=== PATIENT | female | born 1980 | race Caucasian/White ===

== ENCOUNTER 2019-02-07 09:07 | Emergency (ER) | payer MEDICAID, OTHER ==
[2019-02-07] MEDS ORDERED: SODIUM CHLORIDE 0.9% 1000ML 1,000 ML IV ONE (09:21)
[2019-02-07] MEDS ORDERED: ACETAMINOPHEN 325 MG TAB ONE (09:22)
[2019-02-07] MEDS ORDERED: CEFTRIAXONE SODIUM 2 GM VIAL ONE (09:49)
[2019-02-07 09:52] LABS: HCG,QUAL RESULT NEGATIVE (NEGATIVE)
[2019-02-07 09:54] LABS: BILIRUBIN,URINE Negative (NEGATIVE); COLOR,URINE Yellow (YELLOW); GLUCOSE, URINE (UA) Negative (NEGATIVE); KETONES,URINE Negative (NEGATIVE); LEUKOCYTE ESTERASE ,URINE Moderate (NEGATIVE); NITRATE,URINE Positive (NEGATIVE); OCCULT BLOOD,URINE Trace (NEGATIVE); PH,URINE 6.5 (5.0-8.0); PROTEIN,URINE Trace mg/dL (NEGATIVE)
[2019-02-07 09:55] LABS: APPEARANCE,URINE SLIGHTLY CLOUDY (CLEAR)
[2019-02-07 10:00] LABS: BACTERIA,URINE Moderate /HPF (None Seen)
[2019-02-07 10:14] LABS: CREATININE 0.8 mg/dL (0.5-1.5); POTASSIUM 3.7 mmol/L (3.5-5.1)
[2019-02-07 10:24] LABS: ALBUMIN 2.7 g/dL (3.5-5.0); BILIRUBIN,DIRECT 0.2 mg/dL (0.0-0.3); BILIRUBIN,TOTAL 0.7 mg/dL (0.2-1.0)
[2019-02-07 10:36] LABS: BASOPHILS % (AUTO) 1.4 % (0.0-5.0); EOSINOPHILS % (AUTO) 0.1 % (0.0-8.0); HEMATOCRIT 33.3 % (36-48); MEAN CORPUSCULAR HEMOGLOBIN 20.9 pg (27.0-33.0); MEAN CORPUSCULAR HGB CONC 30.9 g/dL (32.0-36.0); MEAN CORPUSCULAR VOLUME 67.6 fL (79-99); MONOCYTES % (AUTO) 4.3 % (3.0-13.0); NEUTROPHILS % (AUTO) 81.2 % (40.0-77.0); PLATELET COUNT (AUTO) 315 K/uL (130-400); RED BLOOD CELL COUNT(AUTO) 4.93 MIL/uL (4.00-5.50); RED CELL DISTRIBUTION WIDTH 17.2 % (11.0-15.5); WHITE BLOOD COUNT (AUTO) 12.8 K/uL (4.8-10.8)
[2019-02-07 10:54] LABS: B-TYPE NATRIURETIC PEPTIDE 825 pg/mL (0-100)
== END 2019-02-07 12:31 | disposition left against medical advice (07) ==
LOC: EDH 09:07
DX: J18.9 Pneumonia, unspecified organism (principal)
CPT/HCPCS: 36415; 71045; 71275; 80048; 80076; 81001; 81025; 82550; 83605; 83880; 84484; 85025; 87040 ×2; 93005; 96374; 99285; J0696; J7030

== ENCOUNTER 2019-02-26 20:22 | Inpatient (IN) | payer SELFPAY ==
[~2019-02-26] VITALS: Ht 162.6 cm; Wt 67.0 kg
[2019-02-26] MEDS ORDERED: SODIUM CHLORIDE 0.9% 1000ML 1,000 ML IV ONE (20:39)
[2019-02-26 20:45] LABS: APPEARANCE,URINE SL CLOUDY (CLEAR); BILIRUBIN,URINE NEGATIVE (NEGATIVE); COLOR,URINE YELLOW (YELLOW); GLUCOSE, URINE (UA) NEGATIVE (NEGATIVE); KETONES,URINE NEGATIVE (NEGATIVE); LEUKOCYTE ESTERASE ,URINE TRACE (NEGATIVE); NITRATE,URINE POSITIVE (NEGATIVE); OCCULT BLOOD,URINE MODERATE (NEGATIVE); PROTEIN,URINE 30 mg/dL (NEGATIVE); UROBILINOGEN,URINE 0.2 mg/dL (0.2-1.0)
[2019-02-26 20:52] LABS: BACTERIA,URINE Moderate /HPF (None Seen); HYALINE CASTS, URINE 0-1 /LPF (0-1 /LPF); MUCUS,URINE Rare LPF (None Seen); SQUAMOUS EPITHELIAL CELL,UR Moderate /HPF (0-2)
[2019-02-26 20:53] LABS: AMPHET/METH SCREEN,URINE NEGATIVE (NEGATIVE); BARBITURATE SCREEN, URINE NEGATIVE (NEGATIVE); BENZODIAZEPINES SCREEN,URINE NEGATIVE (NEGATIVE); CANNABINOID SCREEN,URINE NEGATIVE (NEGATIVE); COCAINE SCREEN,URINE NEGATIVE (NEGATIVE); OPIATE SCREEN,URINE NEGATIVE (NEGATIVE); PHENCYCLIDINE SCREEN,URINE NEGATIVE (NEGATIVE)
[2019-02-26 20:56] LABS: BASOPHILS % (AUTO) 0.6 % (0.0-5.0); EOSINOPHILS % (AUTO) 0.6 % (0.0-8.0); HEMATOCRIT 30.6 % (36-48); LYMPHOCYTES % (AUTO) 11.8 % (21.0-51.0); MEAN CORPUSCULAR HEMOGLOBIN 20.8 pg (27.0-33.0); MEAN CORPUSCULAR HGB CONC 31.3 g/dL (32.0-36.0); MEAN CORPUSCULAR VOLUME 66.4 fL (79-99); MONOCYTES % (AUTO) 5.7 % (3.0-13.0); NEUTROPHILS % (AUTO) 81.3 % (40.0-77.0); NUCLEATED RED BLOOD CELLS 0.1 % (0.0-0.19); PLATELET COUNT (AUTO) 273 K/uL (130-400); RED BLOOD CELL COUNT(AUTO) 4.61 MIL/uL (4.00-5.50); RED CELL DISTRIBUTION WIDTH 17.8 % (11.0-15.5); WHITE BLOOD COUNT (AUTO) 13.4 K/uL (4.8-10.8)
[2019-02-26] MEDS ORDERED: IPRATROPIUM/ALBUTEROL SULFATE 3 ML SOLUTION IH ONE (21:00)
[2019-02-26 21:10] LABS: CREATININE 0.7 mg/dL (0.5-1.5); INR 0.89 (0.85-1.15); PARTIAL THROMBOPLASTIN TIME 24.3 SEC (26.3-35.5); POTASSIUM 3.5 mmol/L (3.5-5.1); PROTHROMBIN TIME 9.4 SEC (9.6-11.6)
[2019-02-26 21:15] LABS: ALBUMIN 2.5 g/dL (3.5-5.0); BILIRUBIN,TOTAL 0.9 mg/dL (0.2-1.0); TOTAL PROTEIN, SERUM 6.6 g/dL (6.0-8.3)
[2019-02-26] MEDS ORDERED: ASPIRIN 325 MG TABLET ONE (21:56)
[2019-02-26] MEDS ORDERED: NITROGLYCERIN 1GM/1 INCH PACKET TD ONE (21:56)
[2019-02-26] MEDS ORDERED: FUROSEMIDE 10 MG/ML 4ML VIAL ONE (23:22)
[2019-02-26] MEDS ORDERED: HYDRALAZINE HCL 20 MG/ML VIAL IV PRN (23:30)
[2019-02-27] MEDS ORDERED: TRAMADOL HCL 50 MG TABLET ONE (00:04)
[2019-02-27] MEDS ORDERED: AZITHROMYCIN 500MG+NS 250ML 250 ML IV ONE (00:04)
[2019-02-27 00:28] LABS: EOSINOPHILS % (AUTO) 0.3 % (0.0-8.0); HEMATOCRIT 28.7 % (36-48); LYMPHOCYTES % (AUTO) 15.4 % (21.0-51.0); MEAN CORPUSCULAR HEMOGLOBIN 20.7 pg (27.0-33.0); MEAN CORPUSCULAR HGB CONC 31.2 g/dL (32.0-36.0); MEAN CORPUSCULAR VOLUME 66.2 fL (79-99); MONOCYTES % (AUTO) 5.6 % (3.0-13.0); NEUTROPHILS % (AUTO) 77.7 % (40.0-77.0); PLATELET COUNT (AUTO) 271 K/uL (130-400); RED BLOOD CELL COUNT(AUTO) 4.33 MIL/uL (4.00-5.50); RED CELL DISTRIBUTION WIDTH 17.6 % (11.0-15.5); WHITE BLOOD COUNT (AUTO) 11.8 K/uL (4.8-10.8)
[2019-02-27 00:32] LABS: CREATININE 0.6 mg/dL (0.5-1.5); POTASSIUM 3.2 mmol/L (3.5-5.1)
[2019-02-27] MEDS ORDERED: LEVOFLOXACIN 750 MG/D5W 150 ML 150 ML IV SCH (01:15)
[2019-02-27] MEDS ORDERED: IOHEXOL-350 75 ML VIAL IV ONE (01:34)
[2019-02-27] MEDS ORDERED: SODIUM CHLORIDE 3% FOR INHALATION 4 ML/AMP VIAL.NEB IH ONE ×2 (01:37→06:17)
[2019-02-27 02:32] VITALS: BP 144/92
[2019-02-27] MEDS ORDERED: NORG1TAB12 PO (02:38)
[2019-02-27] MEDS ORDERED: SODIUM CHLORIDE 0.9% 250 ML IV ONE (03:15)
[2019-02-27] MEDS ORDERED: LEVOFLOXACIN 750 MG/D5W 150 ML 150 ML ONE (03:22)
[2019-02-27] MEDS ORDERED: ONDANSETRON HCL 4 MG/2 ML VIAL ONE (05:49)
[2019-02-27] MEDS ORDERED: POTASSIUM CHLORIDE 10% ELIXIR 20 MEQ/15 ML UDCUP PO PRN (06:00)
[2019-02-27] MEDS ORDERED: LIDOCAINE HCL-MPF 1% 2ML VIAL IV PRN (06:00)
[2019-02-27] MEDS ORDERED: ONDANSETRON HCL 4 MG/2 ML VIAL IVP PRN (06:00)
[2019-02-27] MEDS ORDERED: POTASSIUM CHLORIDE 20MEQ/100ML 100 ML IV PRN (06:00)
[2019-02-27] MEDS: POTASSIUM CHLORIDE 20 MEQ ERTAB PO PRN ×3 (07:05→16:27)
[2019-02-27 08:00] VITALS: BP 132/92
[2019-02-27] MEDS ORDERED: ENOXAPARIN SODIUM 30 MG/0.3 ML SQ SCH (09:00)
[2019-02-27] MEDS: FAMOTIDINE/PF 20 MG/2 ML VIAL IV SCH ×2 (09:54→21:04)
[2019-02-27] MEDS: BENZONATATE 100 MG CAPSULE PO SCH ×3 (09:54→21:03)
[2019-02-27 11:46] VITALS: BP 135/92
[2019-02-27] MEDS ORDERED: ACETAMINOPHEN 325 MG TAB PO PRN (12:45)
[2019-02-27] MEDS ORDERED: PHARMACY COMMUNICATION MISC SCH (15:15)
[2019-02-27] MEDS ORDERED: LACTATED RINGERS 1000ML 1,000 ML IV SCH (15:30)
[2019-02-27] MEDS ORDERED: COMPOUND IV REFRIGERATED 1 EACH IVSOLN MISC PRN (15:45)
[2019-02-27] MEDS ORDERED: VANCOMYCIN PROTOCOL PER PHARMACY IV SCH (15:45)
[2019-02-27 16:00] VITALS: BP 133/92
[2019-02-27] MEDS ORDERED: VANCOMYCIN 1.5 GM in SODIUM CHLORIDE 0.9% 250 ML IV ONE (16:00)
[2019-02-27 16:16] LABS: ABG BASE EXCESS -3.5 mmol/L (-2.0-3.0); ABG HCO3 18.7 mmol/L (21.0-28.0); ABG OXYGEN SATURATION 94.1 % (95.0-99.0); ABG PCO2 27 mmHg (32-45)
[2019-02-27] MEDS: FUROSEMIDE 10 MG/ML 2ML VIAL IV SCH (16:26)
[2019-02-27 19:26] VITALS: BP 131/102
[2019-02-27] MEDS: OSELTAMIVIR PHOSPHATE 75 MG CAP PO SCH (21:04)
[2019-02-27] MEDS: METOPROLOL TARTRATE 25 MG TAB PO SCH (21:04)
[2019-02-27] MEDS: ZOSYN 3.375GM+NS 50ML 50 ML IV SCH (21:04)
[2019-02-27 23:37] VITALS: BP 126/84
[2019-02-28] MEDS ORDERED: AZITHROMYCIN 500MG+NS 250ML 250 ML IV SCH
[2019-02-28] MEDS: VANCOMYCIN 1GM+NS 250ML 250 ML IV SCH ×2 (00:35→09:36)
[2019-02-28 03:54] VITALS: BP 132/95
[2019-02-28 04:20] LABS: BASOPHILS % (AUTO) 2.9 % (0.0-5.0); EOSINOPHILS % (AUTO) 0.3 % (0.0-8.0); HEMATOCRIT 28.4 % (36-48); LYMPHOCYTES % (AUTO) 20.5 % (21.0-51.0); MEAN CORPUSCULAR HEMOGLOBIN 20.8 pg (27.0-33.0); MEAN CORPUSCULAR HGB CONC 31.1 g/dL (32.0-36.0); MEAN CORPUSCULAR VOLUME 67.1 fL (79-99); MONOCYTES % (AUTO) 7.1 % (3.0-13.0); NEUTROPHILS % (AUTO) 69.2 % (40.0-77.0); NUCLEATED RED BLOOD CELLS 0.1 % (0.0-0.19); PLATELET COUNT (AUTO) 319 K/uL (130-400); RED BLOOD CELL COUNT(AUTO) 4.24 MIL/uL (4.00-5.50); RED CELL DISTRIBUTION WIDTH 17.6 % (11.0-15.5); WHITE BLOOD COUNT (AUTO) 12.1 K/uL (4.8-10.8)
[2019-02-28 04:35] LABS: ALBUMIN 2.2 g/dL (3.5-5.0); BILIRUBIN,DIRECT 0.3 mg/dL (0.0-0.3); BILIRUBIN,TOTAL 0.9 mg/dL (0.2-1.0); CREATININE 0.9 mg/dL (0.5-1.5); POTASSIUM 4.2 mmol/L (3.5-5.1); TOTAL PROTEIN, SERUM 6.2 g/dL (6.0-8.3)
[2019-02-28] MEDS: ZOSYN 3.375GM+NS 50ML 50 ML IV SCH ×3 (05:15→20:20)
[2019-02-28] MEDS: FUROSEMIDE 10 MG/ML 2ML VIAL IV SCH (05:16)
[2019-02-28 05:30] LABS: ERYTHROCYTE SEDIMENTATION RATE 55 MM/HR (0-20)
[2019-02-28 08:11] VITALS: BP 130/90
[2019-02-28 08:57] LABS: % IRON SATURATION 2.2 % (22-44)
[2019-02-28] MEDS: ENOXAPARIN SODIUM 40 MG/0.4 ML SYRINGE SQ SCH (09:00)
[2019-02-28] MEDS ORDERED: SPIRONOLACTONE 25 MG TAB PO SCH (09:00)
[2019-02-28] MEDS: FUROSEMIDE 10 MG/ML 4ML VIAL IV SCH ×2 (09:30→16:43)
[2019-02-28] MEDS: FAMOTIDINE/PF 20 MG/2 ML VIAL IV SCH ×2 (09:37→20:51)
[2019-02-28] MEDS: BENZONATATE 100 MG CAPSULE PO SCH ×3 (09:37→20:51)
[2019-02-28] MEDS: OSELTAMIVIR PHOSPHATE 75 MG CAP PO SCH ×2 (09:37→20:51)
[2019-02-28] MEDS: METOPROLOL TARTRATE 25 MG TAB PO SCH ×2 (09:37→20:52)
[2019-02-28 10:20] LABS: APPEARANCE,URINE Clear (CLEAR); BILIRUBIN,URINE Negative (NEGATIVE); COLOR,URINE Yellow (YELLOW); GLUCOSE, URINE (UA) Negative (NEGATIVE); KETONES,URINE Negative (NEGATIVE); LEUKOCYTE ESTERASE ,URINE Trace (NEGATIVE); NITRATE,URINE Negative (NEGATIVE); OCCULT BLOOD,URINE Small (NEGATIVE); PH,URINE 6.5 (5.0-8.0); PROTEIN,URINE Negative (NEGATIVE); UROBILINOGEN,URINE 0.2 mg/dL (0.2-1.0)
[2019-02-28] MEDS: SPIRONOLACTONE 25 MG TAB PO SCH ×2 (10:31→20:51)
[2019-02-28 10:35] LABS: BACTERIA,URINE Rare /HPF (None Seen); RBC,URINE 0-1 /HPF (0-1); WBC,URINE 0-1 /HPF (0-1)
[2019-02-28 11:51] VITALS: BP 120/92
[2019-02-28 16:38] VITALS: BP 129/93
[2019-02-28] MEDS: LEVOFLOXACIN 750 MG/D5W 150 ML 150 ML IV SCH (16:44)
[2019-02-28 19:22] VITALS: BP 136/94
[2019-02-28 23:20] VITALS: BP 139/94
[2019-03-01] MEDS: VANCOMYCIN 750MG + NS 250 ML IV SCH ×6 (00:10→17:27)
[2019-03-01 03:49] VITALS: BP 122/89
[2019-03-01 04:01] LABS: HEMATOCRIT 29.4 % (36-48); MEAN CORPUSCULAR HEMOGLOBIN 20.9 pg (27.0-33.0); MEAN CORPUSCULAR HGB CONC 31.4 g/dL (32.0-36.0); MEAN CORPUSCULAR VOLUME 66.7 fL (79-99); NUCLEATED RED BLOOD CELLS 0.2 % (0.0-0.19); PLATELET COUNT (AUTO) 301 K/uL (130-400); RED BLOOD CELL COUNT(AUTO) 4.42 MIL/uL (4.00-5.50); RED CELL DISTRIBUTION WIDTH 17.6 % (11.0-15.5); WHITE BLOOD COUNT (AUTO) 8.5 K/uL (4.8-10.8)
[2019-03-01 04:14] LABS: CREATININE 0.9 mg/dL (0.5-1.5)
[2019-03-01 04:19] LABS: B-TYPE NATRIURETIC PEPTIDE 1330 pg/mL (0-100)
[2019-03-01] MEDS: POTASSIUM CHLORIDE 20 MEQ ERTAB PO PRN ×4 (04:41→17:28)
[2019-03-01] MEDS: ZOSYN 3.375GM+NS 50ML 50 ML IV SCH ×3 (04:41→20:49)
[2019-03-01 07:53] VITALS: BP 131/95
[2019-03-01] MEDS: BENZONATATE 100 MG CAPSULE PO SCH ×3 (08:02→20:50)
[2019-03-01] MEDS: SPIRONOLACTONE 25 MG TAB PO SCH ×2 (08:02→20:49)
[2019-03-01] MEDS: METOPROLOL TARTRATE 25 MG TAB PO SCH ×3 (08:02→20:50)
[2019-03-01] MEDS: FAMOTIDINE/PF 20 MG/2 ML VIAL IV SCH ×2 (08:02→20:49)
[2019-03-01] MEDS: OSELTAMIVIR PHOSPHATE 75 MG CAP PO SCH ×2 (08:02→20:49)
[2019-03-01] MEDS: ENOXAPARIN SODIUM 40 MG/0.4 ML SYRINGE SQ SCH (08:03)
[2019-03-01 08:12] LABS: HEPATITIS A ANTIBODY IGM Negative (Negative); HEPATITIS B CORE IGM Negative (Negative); HEPATITIS Bs ANTIGEN SCREEN P Negative (Negative)
[2019-03-01] MEDS: LEVOFLOXACIN 750 MG/D5W 150 ML 150 ML IV SCH (10:00)
[2019-03-01 11:37] VITALS: BP 132/91
[2019-03-01 15:31] VITALS: BP 127/90
[2019-03-01] MEDS: FUROSEMIDE 10 MG/ML 4ML VIAL IV SCH (17:25)
[2019-03-01 19:44] VITALS: BP 127/96
[2019-03-01 23:41] VITALS: BP 113/86
[2019-03-02] MEDS: VANCOMYCIN 750MG + NS 250 ML IV SCH ×4 (01:59→08:08)
[2019-03-02 03:55] VITALS: BP 121/80
[2019-03-02] MEDS ORDERED: MAGNESIUM SULFATE 1 GM in SODIUM CHLORIDE 0.9% 50 ML IV PRN (05:15)
[2019-03-02] MEDS: POTASSIUM CHLORIDE 20 MEQ ERTAB PO PRN ×2 (05:41→08:10)
[2019-03-02] MEDS: ZOSYN 3.375GM+NS 50ML 50 ML IV SCH ×2 (05:41→12:22)
[2019-03-02 07:31] VITALS: BP 129/98
[2019-03-02] MEDS: FAMOTIDINE/PF 20 MG/2 ML VIAL IV SCH (08:08)
[2019-03-02] MEDS: LEVOFLOXACIN 750 MG/D5W 150 ML 150 ML IV SCH (08:08)
[2019-03-02] MEDS: FUROSEMIDE 10 MG/ML 4ML VIAL IV SCH (08:09)
[2019-03-02] MEDS: SPIRONOLACTONE 25 MG TAB PO SCH (08:09)
[2019-03-02] MEDS: BENZONATATE 100 MG CAPSULE PO SCH ×2 (08:09→14:50)
[2019-03-02] MEDS: OSELTAMIVIR PHOSPHATE 75 MG CAP PO SCH (08:09)
[2019-03-02] MEDS: METOPROLOL TARTRATE 25 MG TAB PO SCH ×2 (08:11→14:50)
[2019-03-02] MEDS: ENOXAPARIN SODIUM 40 MG/0.4 ML SYRINGE SQ SCH (08:12)
[2019-03-02 11:07] VITALS: BP 129/93
[2019-03-02 15:21] VITALS: BP 129/98
[2019-03-02] MEDS ORDERED: SPIR25TA PO (15:24)
[2019-03-02] MEDS ORDERED: FURO40TA5 PO (15:24)
[2019-03-02] MEDS ORDERED: METO25TA6 PO (15:24)
[2019-03-02] MEDS ORDERED: RAMI5CAP66 PO (15:25)
== END 2019-03-02 17:00 | disposition home or self-care (01) | DRG 291 ==
LOC: EDH 20:22 → EDHIP 20:23 → 3AH 02-27 00:14 → 2AH 02-27 18:16
PROVIDERS: ADMIT Internal Medicine; ATTEND Internal Medicine
DX: I11.0 Hypertensive heart disease with heart failure (principal); J18.9 Pneumonia, unspecified organism; J96.01 Acute respiratory failure with hypoxia; E44.0 Moderate protein-calorie malnutrition; I50.43 Acute on chronic combined systolic (congestive) and diastolic (congestive) heart failure; I42.9 Cardiomyopathy, unspecified; D50.9 Iron deficiency anemia, unspecified; I34.0 Nonrheumatic mitral (valve) insufficiency; B19.20 Unspecified viral hepatitis C without hepatic coma; Z68.25 Body mass index [BMI] 25.0-25.9, adult
CPT/HCPCS: 36415; 36600; 71045; 71046; 71275; 80048; 80053; 80074; 80076; 80202; 80305; 81001; 81025; 82550; 82803; 83520; 83540; 83550; 83735; 83880; 84132; 84484; 85025; 85027; 85378; 85610; 85651; 85730; 86038; 86215; 86235; 86255; 86431; 86658; 86701; 87040; 87071; 87205; 87390; 87486; 87581; 87633; 87798; 87804; 87902; 93005; 93306; 93970; 94640; 99291; G0378; J0456; J1650; J1940; J1956; J2405; J2543; J3370; J3480; J3490; J7030; J7120; Q9967

== ENCOUNTER → 2021-12-02 | Outpatient (CLI) | payer OTHER ==
[~2021-12-02] MED LIST: FURO40TA5 PO; METO25TA6 PO; RAMI5CAP66 PO; SPIR25TA PO
== END | disposition home or self-care (01) ==
LOC: RAH 12:41
PROVIDERS: ATTEND Internal Medicine Cardiovascular Disease
DX: I42.0 Dilated cardiomyopathy (principal); I34.0 Nonrheumatic mitral (valve) insufficiency; M47.815 Spondylosis without myelopathy or radiculopathy, thoracolumbar region
CPT/HCPCS: 71046

== ENCOUNTER → 2021-12-02 | Outpatient (CLI) | payer OTHER | END | disposition home or self-care (01) | LOC: RAH 12:28 | PROVIDERS: ATTEND Internal Medicine Cardiovascular Disease | DX: Z13.6 Encounter for screening for cardiovascular disorders (principal) | CPT/HCPCS: 75571 ==